=== PATIENT | female | born 1980 | race Caucasian/White ===

== ENCOUNTER 2018-10-17 23:30 | Outpatient (CLI) | payer MEDICAID, SELFPAY ==
--- NOTE | 2018-10-16 16:20 | DI.MAMMO_ITS ---
SYMPTOMS/DIAGNOSIS: SCREENING, Z12.31, PREVENTATIVE CARE, Z00.00 MAMMOGRAM: Mammograms were interpreted according to the usual protocol including computer analysis with CAD system, tomosynthesis and C view imaging. This is a baseline examination. Breast density B. No suspicious masses or microcalcifications are seen. The skin and axilla are unremarkable. There is asymmetric breast tissue in the upper right breast seen on the mediolateral oblique view. This may represent overlying fibroglandular tissue. Spot compression views requested for further evaluation. Ultrasound may be indicated at that time. IMPRESSION: Additional views of the right breast as described above. Category 0. MQSA ASSESSMENT OF FINDINGS: Incomplete: Needs additional imaging evaluation. Category 0. Patient will receive a letter notifying them of these results. BI-RADS category B. There are scattered areas of fibroglandular density.
== END 2018-10-17 23:50 ==
PROVIDERS: PCP Family Medicine; Visit Provider Family Medicine
DX: Z12.31 Encounter for screening mammogram for malignant neoplasm of breast (principal); R92.8 Other abnormal and inconclusive findings on diagnostic imaging of breast
CPT/HCPCS: 77063; 77067

== ENCOUNTER 2018-10-24 00:48 | Outpatient (CLI) | payer MEDICAID, SELFPAY ==
--- NOTE | 2018-10-24 09:30 | DI.COMBO_ITS ---
SYMPTOM/DIAGNOSIS: F/U MAMMO SHOWING ASYMMETRIC BREAST TISSUE, UPPER RT BREAST RIGHT BREAST ADDITIONAL VIEWS AND RIGHT BREAST ULTRASOUND: Additional images are interpreted according to the usual protocol including tomosynthesis and 2D imaging. An asymmetric density noted on the patient's previous examination was further investigated with a mediolateral compression spot film and ultrasound. There are nonspecific fibroglandular densities and an area which probably represents scarring. In addition, there is a well circumscribed, ovoid density which does not contain calcification. Further evaluation with ultrasound was carried out and there is a well circumscribed area of nodularity adjacent to echodense breast tissue which measures 5 by 6 by 11 mm. and is avascular. This nodule is approximately 5 cm. from the nipple and likely represents a fibroadenoma. The possibility of a malignancy could not be entirely excluded in this patient and follow up evaluation with repeat mammograms and ultrasound in 6 months is recommended. IMPRESSION: Category 3. Breast density, Category B. MQSA ASSESSMENT OF FINDINGS: Probably benign. Six month follow-up recommended. Category 3. Patient will receive a letter notifying them of these results. BI-RADS category B. There are scattered areas of fibroglandular density.
== END 2018-10-24 01:08 ==
PROVIDERS: PCP Family Medicine; Visit Provider Family Medicine
DX: Z12.31 Encounter for screening mammogram for malignant neoplasm of breast (principal); R92.8 Other abnormal and inconclusive findings on diagnostic imaging of breast; N63.10 Unspecified lump in the right breast, unspecified quadrant; D24.1 Benign neoplasm of right breast
CPT/HCPCS: 76642; 77063; 77067

== ENCOUNTER 2018-10-26 16:49 | Outpatient (REF) | payer MEDICAID, SELFPAY ==
[2018-10-30 14:52] LABS: Chlamydia Result Negative; GC Result Negative; Specimen Description CERVIX
== END 2018-10-26 17:09 ==
LOC: LBN 16:49
PROVIDERS: PCP Family Medicine; Visit Provider Nurse Practitioner Women's Health
DX: Z11.3 Encounter for screening for infections with a predominantly sexual mode of transmission (principal)
CPT/HCPCS: 87491; 87591

== ENCOUNTER 2018-12-13 15:30 | Outpatient (REF) | payer MEDICAID, SELFPAY ==
--- NOTE | 2018-12-13 14:20 | PAPFT_PTH ---
PATIENT: Esterlla Babb LOC: [facility] U#:[id number] AGE/SX: 38/F ROOM: RE12/13/[address]: Tabatha Ashby NP : 1980 BED: DIS: 12/13/2018 SPEC #: [id number] RECD: 12/13/18 17:31 STATUS: KURT RESteve #: [id number] DARLYN: 12/13/18 14:[address]: Tabatha Ashby NP DEPT: [facility] Cytology RECD BY: Cha Dodd ENTERED: 12/13/18 17:31 SP TYPE: PAPFT OTHR DR: Audra Stafford V Tissues: 1 - CX/ENDOCX FOR PAP SMEARS Procedures: PAP THIN PREP/UVM Screening HPV DNA PROBE Comments: [id number]
== END 2018-12-13 15:50 ==
LOC: LBN 15:30
PROVIDERS: PCP Family Medicine; Visit Provider Nurse Practitioner Women's Health
DX: Z12.4 Encounter for screening for malignant neoplasm of cervix (principal); Z11.51 Encounter for screening for human papillomavirus (HPV)
CPT/HCPCS: 88142; 87624

== ENCOUNTER 2019-09-12 00:04 | Emergency (ER) | payer MEDICAID, SELFPAY ==
[2019-09-12 00:09] VITALS: BP 126/87; PULSE 80; RESP 16; TEMP 36.4; O2SAT 98
--- NOTE | 2019-09-12 00:19 | ED.GENADUL_ITS ---
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 Return to emergency department for fainting, chest pain, shortness of breath, persistent pelvic pain, fever. Referrals: [facility] [Provider Group] Medical Decision Making Patient with history of dysfunctional uterine bleeding/heavy bleeding in the past. Had been regulated okay with a medicated IUD except for the last couple of weeks recurrent heavy bleeding. No chest pain, shortness of breath, syncope. Did speak to OB and was told to make an appointment but has not done so. She is not orthostatic. test is negative. In review of records this spring after IUD placed she was tried on Aygestin. She reports that she cannot remember whether this really helped or not. I can start her on Provera 5 mg nightly for the next 5 days to see if we can get control of her bleeding but she will need to follow-up with OB as they requested. Return to ED for syncope, chest pain, shortness of breath, severe persistent pelvic pain. HPI General Mode of arrival: ambulatory . Date/Time Provider Initiated Documentation: 09/12/19 00:18 . Limitations to Documentation: no limitations . Information obtained by: patient and RN notes reviewed . HPI Narrative: Patient presents to ED with complaint of heavy vaginal bleeding. Patient has history of dysfunctional uterine bleeding and has so for years. She has medicated IUD in place to try to help control her bleeding. When it was initially placed she had heavy bleeding for couple of months. She then became a little bit better regulated with less heavy bleeding but continued to have her periods. For the last 1 to 2 weeks she has had recurrent heavy bleeding with clots. She has menstrual cramping but no persistent pelvic pain. She has no fever, syncope, chest pain, shortness of breath. She has been in contact with her OB provider and was told she needed to make an appointment but has not done so because she does not feel she can take time off from work. She felt her bleeding was pretty heavy tonight with clots and decided to come here. 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 Const: no fever, chills, weakness Resp: no cough, SOB, pleuritic pain CV: no CP, diaphoresis, edema, syncope GI: no abdominal pain, nausea, vomiting, diarrhea Neuro: no headache, numbness, focal weakness, confusion [facility] Medical History (Updated 09/12/19 @ 01:25 by Leonard Goodrich MD) Anemia (Chronic) Dysfunctional uterine bleeding (Chronic 11/02/17) Surgical History (Updated 09/12/19 @ 00:28 by Leonard Goodrich MD) S/P appendectomy (Acute) S/P tubal ligation (Acute) Social History Smoking/Tobacco Use Status: Never Drug use: Never Do you feel safe at home: Yes Do you feel safe in your relationship?: Yes Female Reproductive History Menstrual control method: progestin IUCD (Mirena IUD inserted by Alexy Ashby NP IKI=[id number] EXP=01/2021) and permanent sterilization History History 8 Para 5 Hx # Term Pregnancies Multiple births Hx # Pregnancies Ectopic pregnancies AB induced Hx Number of Living Children AB spontaneous Exam Narrative Exam Narrative: Vitals: Afebrile. Normal vital signs with normal room air pulse oximetry. Not orthostatic. Const: WDWN female in NAD. HEENT: NC/AT. Normal facial exam. Eyes: Normal conjunctiva and sclera. Neck: Supple. Trachea midline. Lungs: Normal respiratory effort. Lungs are clear. Cor: RRR without murmur/gallop. GI: Soft. NT/ND. No guarding or rebound. Pelvic: deferred. Neuro: A+O x 3. Normal speech, mentation, gait. Cranial nerves II - XII grossly intact. No gross motor or sensory deficit. Ext: No C/C/E. Skin: Warm and dry without rash. Course Vital Signs Vital signs: Vital Signs Temperature 97.5 F L 09/12/19 00:09 Pulse 80 09/12/19 00:09 Respiratory Rate 16 09/12/19 00:09 Blood Pressure 126/87 09/12/19 00:09 Pulse Oximetry 98 09/12/19 00:09 Temperature 97.5 F L 09/12/19 00:09 Pulse 80 09/12/19 00:09 Respiratory Rate 16 09/12/19 00:09 Respiratory Effort Non-Labored 09/12/19 00:13 Blood Pressure 126/87 09/12/19 00:09 Blood Pressure Position Sitting 09/12/19 00:09 Pulse Oximetry 98 09/12/19 00:09 Oxygen Delivery Method Room Air 09/12/19 00:09 Oxygen Flow Rate 0 09/12/19 00:09 Pain Level 6 09/12/19 00:09
[2019-09-12 00:23] VITALS: BP 118/80; BP 121/84; BP 126/80; PULSE 84; PULSE 85; PULSE 99
[2019-09-12] MEDS: medroxyPROGESTERone 5 MG TAB PO (01:11)
[2019-09-12 01:37] VITALS: BP 126/87; PULSE 80; RESP 16; TEMP 36.4; O2SAT 98
== END 2019-09-12 01:40 | disposition home or self-care (01) ==
PROVIDERS: Emergency Provider Emergency Medicine; PCP Family Medicine
DX: N93.8 Other specified abnormal uterine and vaginal bleeding
CPT/HCPCS: 81025; 99284

== ENCOUNTER 2019-09-12 14:13 | Outpatient (REF) | payer MEDICAID, SELFPAY ==
--- NOTE | 2019-09-12 13:20 | ENDOMET_PTH ---
PATIENT: Estrella Babb LOC: [facility] U#:[id number] AGE/SX: 39/F ROOM: RE09/12/[address]: Tabatha Ashby NP : 1980 BED: DIS: 09/12/2019 SPEC #: [id number] RECD: 09/12/19 17:17 STATUS: KURT RESteve #: [id number] DARLYN: 09/12/19 13:[address]: Tabatha Ashby NP DEPT: Surgical Specimen RECD BY: Cha Dodd ENTERED: 09/12/19 17:17 SP TYPE: Endomet OTHR DR: Audra Stafford V Tissues: 1 - ENDOMETRIUM BX/JOHNNYETTE Procedures: GROSS AND MICRO LEVEL 4 Comments: [id number]
== END 2019-09-12 14:33 ==
LOC: LBN 14:13
PROVIDERS: PCP Family Medicine; Visit Provider Nurse Practitioner Women's Health
DX: N85.01 Benign endometrial hyperplasia (principal); N83.8 Other noninflammatory disorders of ovary, fallopian tube and broad ligament; N93.9 Abnormal uterine and vaginal bleeding, unspecified
CPT/HCPCS: 88305

== ENCOUNTER 2019-09-13 01:42 | Outpatient (CLI) | payer MEDICAID, SELFPAY ==
--- NOTE | 2019-09-13 09:50 | DI.US_ITS ---
EXAM: US PELVIS TRANSVAGINAL CLINICAL HISTORY: Abnormal uterine bleeding, IUD in place, N93.8, Z30.431 TECHNIQUE: Ultrasound performed using standard protocol. COMPARISON: US breast RT limited from 10/24/2018 FINDINGS: Pelvic ultrasounds performed transabdominally transvaginally. Please see the accompanying data sheet for measurements of the pelvic structures. The patient reportedly had recent endometrial biopsy. T here is a vascular mass measuring up to 7 cm in the fundal endometrium. No IUD identified on this sc an. The ovaries are normal in appearance. No free fluid identified in the cul-de-sac. Limited scan francisco of the kidneys is unremarkable. IMPRESSION: IUD not visualized in the uterus. There is an apparent endometrial mass, reportedly recently biopsied. No gross fluid collection ident ified to suggest acute hematoma.
== END 2019-09-13 02:02 ==
PROVIDERS: PCP Family Medicine; Visit Provider Nurse Practitioner Women's Health
DX: N93.8 Other specified abnormal uterine and vaginal bleeding (principal); Z30.431 Encounter for routine checking of intrauterine contraceptive device; N85.8 Other specified noninflammatory disorders of uterus
CPT/HCPCS: 76830; 76856

== ENCOUNTER 2019-09-18 11:36 | Outpatient (CLI) | payer MEDICAID, SELFPAY | END 2019-09-18 11:56 | LOC: PRC 11:36 → DSU 11:39 | PROVIDERS: PCP Family Medicine; Visit Provider Obstetrics & Gynecology | DX: D25.9 Leiomyoma of uterus, unspecified (principal); Z01.818 Encounter for other preprocedural examination; Z01.812 Encounter for preprocedural laboratory examination | CPT/HCPCS: 36415; 85027; 86850; 86900; 86901; 86920 ==

== ENCOUNTER 2019-09-18 11:38 | Outpatient (CLI) | payer MEDICAID, SELFPAY ==
--- NOTE | 2019-09-18 12:45 | DI.RAD_ITS ---
EXAM: XR ABDOMEN FLAT PLATE INDICATION: IUD lost strings. Not in uterus. T83.32XA. COMPARISON: No exams were available for comparison TECHNIQUE: 2D digital imaging was performed. FINDINGS: No IUD is visible. The bowel gas pattern is unremarkable. No urinary tract calculi or organomegaly is seen. The bones are unremarkable. IMPRESSION: The IUD is not visualized.
== END 2019-09-18 11:58 ==
PROVIDERS: PCP Family Medicine; Visit Provider Obstetrics & Gynecology
DX: T83.32XA Displacement of intrauterine contraceptive device, initial encounter (principal); D25.9 Leiomyoma of uterus, unspecified; Z01.818 Encounter for other preprocedural examination; Z01.812 Encounter for preprocedural laboratory examination
CPT/HCPCS: 74018

== ENCOUNTER 2019-09-19 11:13 | Observation (INO) | payer MEDICAID, SELFPAY ==
[2019-09-18 11:51] VITALS: BP 102/70; PULSE 76
[2019-09-18 13:15] LABS: HCT 27.2 % (36.0-46.0); HGB 8.2 g/dL (12.0-15.5); Mean Corp. HGB Concentration 30.1 g/dL (32.0-36.0); Mean Corpuscular Hemoglobin 21.8 pg (27.0-33.0); Mean Corpuscular Volume 72.3 fL (80-95); Mean Platelet Volume 10.9 fL (8.0-11.0); RBC 3.76 m/cumm (4.00-5.20); RBC Distribution Width 17.8 % (11.7-14.6); White Blood Cell Count 6.95 k/cumm (4.4-10.8)
[2019-09-19] VITALS (17 sets, daily range): BP systolic 81–114; BP diastolic 44–77; PULSE 7–88; RESP 13–24; TEMP 36.3–36.8; O2SAT 98–100
[2019-09-19 06:35] LABS: Abs Immature Grans 0.02 k/cumm (0.0-0.09); Absolute Basophil Count 0.03 k/cumm (0.0-0.2); Absolute Eosinophil Count 0.11 k/cumm (0.0-0.7); Absolute Lymphocyte Count 1.74 k/cumm (1.2-3.4); Absolute Monocyte Count 0.41 k/cumm (0.11-0.7); Absolute Neutrophil Count 5.11 k/cumm (1.2-6.7); Basophils % 0.4; Eosinophils % 1.5; HCT 27.1 % (36.0-46.0); HGB 8.2 g/dL (12.0-15.5); Immature Grans % 0.3 %; Lymphocytes % 23.5; Mean Corp. HGB Concentration 30.3 g/dL (32.0-36.0); Mean Corpuscular Hemoglobin 21.8 pg (27.0-33.0); Mean Corpuscular Volume 71.9 fL (80-95); Monocytes % 5.5; Neutrophils % 68.8; RBC 3.77 m/cumm (4.00-5.20); RBC Distribution Width 17.8 % (11.7-14.6); White Blood Cell Count 7.42 k/cumm (4.4-10.8)
[2019-09-19 06:47] LABS: Mean Platelet Volume 9.3 fL (8.0-11.0)
[2019-09-19 06:49] LABS: Platelet Count 303 x1000/uL (130-400)
[2019-09-19] MEDS: Lactated Ringers 1,000 ML 125 ML IV ×3 (07:00→14:24)
[2019-09-19] MEDS: ceFAZolin 2 GM/50 ML BAG IVPB (07:45)
[2019-09-19] MEDS: Bupivacaine 0.25% Pres-Free 30 ML VIAL (08:10)
--- NOTE | 2019-09-19 09:47 | UTER_PTH ---
PATIENT: Estrella Babb LOC: [facility] U#:[id number] AGE/SX: 39/F ROOM: OBS.305 RE09/19/[address]: Marcio Melara MD : 1980 BED: A DIS: 09/20/2019 SPEC #: [id number] RECD: 09/19/19 12:46 STATUS: KURT REQ #: [id number] DARLYN: 09/19/19 09:[address]: Marcio Melara DEPT: Surgical Specimen RECD BY: Cha Dodd ENTERED: 09/19/19 12:46 SP TYPE: UTER OTHR DR: Audra Stafford V Tissues: 1 - UTERUS W OR W/O OVARIES(NOT TUMOR/PROLAPSE) Procedures: IMMUNOPEROXIDASE STAIN GROSS AND MICRO LEVEL 5 Comments: [id number]
[2019-09-19] MEDS: Vasopressin 20 UNITS/ML VIAL (09:57)
[2019-09-19] MEDS: Normal Saline 20 ML VIAL (09:57)
[2019-09-19] MEDS: Normal Saline Flush 10 ML SYR IV (13:06)
[2019-09-19] MEDS: Ketorolac 30 MG/ML VIAL IVP ×2 (16:06→21:32)
--- NOTE | 2019-09-19 21:28 | W.PM.PROGNOT ---
Date of Service Date of service: 09/19/19 Time of Service: 21:28 Assessment and Plan Assessment and plan (1) S/P laparoscopic assisted vaginal hysterectomy (LAVH): Status: Acute Assessment and plan: Patient vital signs and urinary output currently stable. No evidence of volume depletion. The plan is to repeat her hemoglobin in the morning, remove Santamaria catheter and assist with ambulating with the plan for possible discharge. (2) Anemia: Status: Chronic Assessment and plan: Recheck CBC in the morning. Qualifiers: Iron deficiency anemia type: chronic blood loss Anemia type: iron deficiency Qualified Code(s): D50.0 - Iron deficiency anemia secondary to blood loss (chronic) Subjective Subjective Patient reports: pain is less, tolerating liquids well and nausea Interval history since last seen: Patient is a 39-year-old G8, P5 female who underwent laparoscopic assisted vaginal hysterectomy and bladder cystoscopy earlier today. Postop course has been uncomplicated she has been out of bed to the chair. Her pain is been well controlled and aside from nausea she reports feeling okay. Patient has a history of anemia and her blood pressure in the recovery area was low with normal pulse and excellent urinary output via Santamaria catheter to gravity drainage. Exam Const General: no acute distress Resp Effort & Inspection: normal respiratory effort Other: Clear mark urine in the Santamaria catheter bag Skin General skin exam: no rashes or lesions noted Extrem General: normal to inspection (SCDs in place) Psych Appearance: grossly normal Mental Status: mental status grossly normal Objective Objective Clinical Data: Abnormal lab results 09/19/19 Range/Units 06:26 RBC 3.77 L (4.00-5.20) m/cumm Hgb 8.2 L (12.0-15.5) g/dL Hct 27.1 L (36.0-46.0) % MCV 71.9 L (80-95) fL MCH 21.8 L (27.0-33.0) pg MCHC 30.3 L (32.0-36.0) g/dL RDW 17.8 H (11.7-14.6) % Vital Signs Temperature 98.2 F 09/19/19 20:42 Temperature Source Tympanic 09/19/19 20:42 Pulse 68 09/19/19 20:42 Pulse Rhythm Regular 09/19/19 20:42 Respiratory Rate 18 09/19/19 20:42 Respiratory Effort 09/19/19 20:42 Respiratory Depth Normal 09/19/19 20:42 Respiratory Pattern Normal 09/19/19 20:42 Blood Pressure 102/56 L 09/19/19 20:42 Pulse Oximetry 98 09/19/19 17:30 Respiratory End-tidal CO2 30 09/19/19 12:15 Oxygen Delivery Method Room Air 09/19/19 20:42 Oxygen Flow Rate 0 09/19/19 20:42 Pain Level 0 09/19/19 16:06 Intake & Output 09/18/19 09/19/19 09/19/19 23:59 11:59 23:59 Intake Total 1150 / 1585.417 435.417 / 1585.417 Output Total 750 / 1350 600 / 1350 Balance 400 / 235.417 -164.583 / 235.417 Weight 182 lb 5.156 oz Intake: IV 1150 / 1585.417 435.417 / 1585.417 Output: Urine 750 / 1350 600 / 1350 Other: Urine Color Indigo Pale Green Urine Appearance Clear Clear Comment Indigo carmine used during surgery. Pacu. Emesis Description None None Laboratory Results WBC 7.42 k/cumm (4.4-10.8) 09/19/19 06:26 RBC 3.77 m/cumm (4.00-5.20) L 09/19/19 06:26 Hgb 8.2 g/dL (12.0-15.5) L 09/19/19 06:26 Hct 27.1 % (36.0-46.0) L 09/19/19 06:26 MCV 71.9 fL (80-95) L 09/19/19 06:26 MCH 21.8 pg (27.0-33.0) L 09/19/19 06:26 MCHC 30.3 g/dL (32.0-36.0) L 09/19/19 06:26 RDW 17.8 % (11.7-14.6) H 09/19/19 06:26 Plt Count 303 x1000/uL (130-400) 09/19/19 06:26 MPV 9.3 fL (8.0-11.0) 09/19/19 06:26 Immature Gran % 0.3 % 09/19/19 06:26 Neutrophils % 68.8 09/19/19 06:26 Lymphocytes % 23.5 09/19/19 06:26 Monocytes % 5.5 09/19/19 06:26 Eosinophils % 1.5 09/19/19 06:26 Basophils % 0.4 09/19/19 06:26 Absolute Neutrophils 5.11 k/cumm (1.2-6.7) 09/19/19 06:26 Absolute Lymphocytes 1.74 k/cumm (1.2-3.4) 09/19/19 06:26 Absolute Monocytes 0.41 k/cumm (0.11-0.7) 09/19/19 06:26 Absolute Eosinophils 0.11 k/cumm (0.0-0.7) 09/19/19 06:26 Absolute Basophils 0.03 k/cumm (0.0-0.2) 09/19/19 06:26 Urine HCG, Qual Cancelled 09/19/19 06:00
[2019-09-19] MEDS: Ondansetron 4 MG/2 ML VIAL IVP (21:32)
[2019-09-19] MEDS: Docusate Sodium 100 MG CAP PO (21:32)
[2019-09-19] MEDS: Normal Saline 10 ML VIAL IJ (21:33)
[2019-09-20] VITALS (8 sets, daily range): BP systolic 90–119; BP diastolic 54–67; PULSE 57–75; RESP 16–20; TEMP 36.4–36.9; O2SAT 99–100
[2019-09-20] MEDS: Ketorolac 30 MG/ML VIAL IVP ×2 (04:01→10:12)
[2019-09-20] MEDS: Normal Saline Flush 10 ML SYR IV ×4 (04:02→11:28)
[2019-09-20 06:40] LABS: HCT 22.9 % (36.0-46.0); Mean Corp. HGB Concentration 29.7 g/dL (32.0-36.0); Mean Corpuscular Hemoglobin 21.7 pg (27.0-33.0); Mean Corpuscular Volume 72.9 fL (80-95); Mean Platelet Volume 11.9 fL (8.0-11.0); RBC 3.14 m/cumm (4.00-5.20); RBC Distribution Width 17.8 % (11.7-14.6); White Blood Cell Count 11.98 k/cumm (4.4-10.8)
[2019-09-20 07:32] LABS: HGB 6.8 g/dL (12.0-15.5)
[2019-09-20 07:37] LABS: Platelet Count 250 x1000/uL (130-400)
[2019-09-20] MEDS: Docusate Sodium 100 MG CAP PO (08:44)
--- NOTE | 2019-09-20 09:40 | W.PM.PROGNOT ---
Date of Service Date of service: 09/20/19 Time of Service: 09:40 Assessment and Plan Assessment and plan (1) S/P laparoscopic assisted vaginal hysterectomy (LAVH): Status: Acute Assessment and plan: Pain is well controlled. Has required no pain management beyond toradol overnight. (2) Abnormal uterine bleeding: Status: Acute (3) Chronic blood loss anemia: Status: Acute Assessment and plan: Will transfuse 1 unit of PRBCs due to anemia. If doing well this afternoon will plan for discharge home. Subjective Subjective Interval history since last seen: Doing well. Pain rated 2/10 on painscale Ambulatory Tolerating regular diet. No dizziness or lightheadedness on ambulation Hgb returned 6.8 this morning. Objective Objective Clinical Data: Abnormal lab results 09/20/19 09/20/19 Range/Units 06:22 09:35 WBC 11.98 H D (4.4-10.8) k/cumm RBC 3.14 L (4.00-5.20) m/cumm Hgb 6.8 L* (12.0-15.5) g/dL Hct 22.9 L (36.0-46.0) % MCV 72.9 L (80-95) fL MCH 21.7 L (27.0-33.0) pg MCHC 29.7 L (32.0-36.0) g/dL RDW 17.8 H (11.7-14.6) % MPV 11.9 H (8.0-11.0) fL Crossmatch See Detail Vital Signs Temperature 98.4 F 09/20/19 07:50 Temperature Source Oral 09/20/19 07:50 Pulse 69 09/20/19 07:50 Pulse Rhythm Regular 09/20/19 07:50 Respiratory Rate 16 09/20/19 07:50 Respiratory Effort Non-Labored 09/20/19 07:50 Respiratory Depth Normal 09/20/19 07:50 Respiratory Pattern Normal 09/20/19 07:50 Blood Pressure 94/62 L 09/20/19 07:50 Pulse Oximetry 100 09/20/19 07:50 Respiratory End-tidal CO2 30 09/19/19 12:15 Oxygen Delivery Method Room Air 09/20/19 07:50 Oxygen Flow Rate 0 09/20/19 07:50 Pain Level 2 02/13/20 08:58 Comment 09/20/19 07:50 Intake & Output 09/19/19 09/19/19 09/20/19 11:59 23:59 11:59 Intake Total 1150 / 2535.417 1385.417 / 2535.417 1150 / 1150 Output Total 750 / 1750 1000 / 1750 600 / 600 Balance 400 / 785.417 385.417 / 785.417 550 / 550 Weight 182 lb 5.156 oz Intake: IV 1150 / 2535.417 1385.417 / 2535.417 910 / 910 Oral 240 / 240 Output: Urine 750 / 1750 1000 / 1750 600 / 600 Other: Urine Color Indigo Pale Pale Green Yellow Urine Appearance Clear Clear Comment Indigo carmine used during surgery. Pacu. Emesis Description None None Laboratory Results WBC 11.98 k/cumm (4.4-10.8) H D 09/20/19 06:22 RBC 3.14 m/cumm (4.00-5.20) L 09/20/19 06:22 Hgb 6.8 g/dL (12.0-15.5) L* 09/20/19 06:22 Hct 22.9 % (36.0-46.0) L 09/20/19 06:22 MCV 72.9 fL (80-95) L 09/20/19 06:22 MCH 21.7 pg (27.0-33.0) L 09/20/19 06:22 MCHC 29.7 g/dL (32.0-36.0) L 09/20/19 06:22 RDW 17.8 % (11.7-14.6) H 09/20/19 06:22 Plt Count 250 x1000/uL (130-400) 09/20/19 06:22 MPV 11.9 fL (8.0-11.0) H 09/20/19 06:22 Immature Gran % 0.3 % 09/19/19 06:26 Neutrophils % 68.8 09/19/19 06:26 Lymphocytes % 23.5 09/19/19 06:26 Monocytes % 5.5 09/19/19 06:26 Eosinophils % 1.5 09/19/19 06:26 Basophils % 0.4 09/19/19 06:26 Absolute Neutrophils 5.11 k/cumm (1.2-6.7) 09/19/19 06:26 Absolute Lymphocytes 1.74 k/cumm (1.2-3.4) 09/19/19 06:26 Absolute Monocytes 0.41 k/cumm (0.11-0.7) 09/19/19 06:26 Absolute Eosinophils 0.11 k/cumm (0.0-0.7) 09/19/19 06:26 Absolute Basophils 0.03 k/cumm (0.0-0.2) 09/19/19 06:26 Urine HCG, Qual Cancelled 09/19/19 06:00 Crossmatch See Detail 09/20/19 09:35
[2019-09-20] MEDS: diphenhydrAMINE 25 MG CAP PO (10:38)
[2019-09-20] MEDS: Acetaminophen 500 MG TAB 1000 MG PO (10:39)
[2019-09-20] MEDS: Normal Saline 1,000 ML 125 ML IV (11:28)
--- NOTE | 2019-09-20 14:03 | ROE_ITS ---
Date of service: 09/19/19 Time of Service: 12:00 Operative Note Operative Note DATE OF PROCEDURE: 09/19/19 PRE-OP DIAGNOSIS: 1. Fibroid uterus 2. Blood loss anemia POST-OP DIAGNOSIS: same PROCEDURE: 1. Laparoscopic-assisted vaginal hysterectomy 2. Cystoscopy SURGEON: Marcio Melara ASSISTING SURGEON: Lesley Trevino ANESTHESIA: GETA and spinal ESTIMATED BLOOD LOSS: 100 PATHOLOGY: other (Uterus) COMPLICATIONS: None Patient was transported to: PACU Patient's condition: stable Findings: 1. 16-week size uterus with large posterior fibroid 2. Normal tubes and ovaries 3. Normal postoperative cystoscopy Procedure Description: The patient received intrathecal anesthesia prior to the onset of the procedure. After adequate general anesthesia was achieved the patient was placed in lithotomy position. The patient was prepped and draped in usual sterile manner. A Fraser catheter was placed in the bladder draining clear urine. A Brightkite uterine manipulator was placed to the cervix. The patient was repositioned. The surgeon was regloved. Attention was then turned to the patient's abdomen. The skin and subcutaneous tissues at the umbilicus were infiltrated with 0.25% Marcaine solution. A small infraumbilical skin incision was then made with a #15 scalpel. Sharp dissection was carried down to the underlying layer of fascia. The fascia was grasped and elevated with 2 Tyrel clamps and incised sharply with the scalpel. The peritoneum was entered with a hemostat. Two S retractors were placed through the incision and the fascia was tagged superiorly and inferiorly with 2 sutures of 0 Vicryl. The 10 mm balloon trocar was advanced through the incision and secured in place. A pneumoperitoneum to approximately 15 mmHg was established with carbon dioxide. 2 5 mm ports were placed under direct visualization in the right lower and left lower quadrants. The uterus was markedly enlarged with a 5 to 6 cm posterior fibroid. The fallopian tubes and ovaries were grossly normal and she was status post tubal ligation. Dissection was carried across the proximal tube and suspensory lig ament with the LigaSure device. Dissection was then carried across the round ligament also with the LigaSure device down to the level of the vesicouterine flap. The anterior leaf was opened and dissection of the vesicouterine flap was carried to the midline with the LigaSure device. Dissection down the broad ligament was taken to the level of the uterine vessels of which the upper branches were coagulated and transected with the LigaSure. A similar dissection was carried out on the opposite side. The bladder flap was then developed caudally. Attention was then turned to the vaginal portion of this procedure. The patient was repositioned. A weighted speculum was placed in the vagina with good visualization of the cervix. The cervix was grasped with a single-tooth tenaculum. The paracervical tissues were infiltrated with vasopressin solution. A circumferential incision was made at the cervicovaginal junction with a #10 scalpel. The anterior and posterior planes were developed with blunt and sharp dissection. The cul-de-sac was entered sharply with Hawkins scissors. A longbilled weighted speculum was inserted reflecting the rectum posteriorly. The vesicocervical space was dissected with blunt and sharp dissection and the anterior cul-de-sac was also entered. The bladder was reflected anteriorly with a right angle retractor. The uterosacral ligaments were crossclamped b ilaterally with Zeppelin clamps, transected with Hawkins scissors and suture ligated with 0 Vicryl in a Viridiana stitch. Suture tags were held. The LigaSure was used to coagulate and transect the inferior branches of the uterine vessels. Dissection on either side was completed with the LigaSure device thereby freeing the uterus. Because of the large bulk of the uterus it was morcellated vaginally with use of a #10 scalpel. The specimen was submitted off the field to pathology. The uterosacral ligaments were incorporated into the vaginal angles with use of the previously placed sutures of 0 Vicryl and with the use of a free needle. The peritoneum was closed with a pursestring suture of 0 Vicryl. The median defect in the vaginal cuff was closed with interrupted vertical mattress sutures of 0 Vicryl. Again excellent hemostasis was noted. The fraser catheter was removed and 5 mL's of indigocarmine had been administered intravenously. A 5 mm 30 degree cystoscope with normal saline distention media was advanced into the bladder. The bladder wall was noted to be free of trauma. There was strong efflux of indigocarmine from both UOs. This was a normal postoperative cystoscopy. The surgeons were regowned and gloved and attention was turned to the patient's abdomen. The pneumoperitoneum was reestablished and laparoscope reinserted. A thorough irrigation was performed. There was a small area of bleeding noted on the left-hand side near the vaginal cuff. This was coagulated with the LigaSure device and excellent hemostasis was noted. The 5 mm trochars were removed under direct visualization. The abdomen was desufflated and the 10 mm umbilical port was removed. The fascia at the umbilicus was closed with 2 previously placed sutures of 0 Vicryl. Skin incisions were closed with 4 Monocryl and Dermabond was applied. The procedure was concluded at this point. Sponge, lap and needle counts were correct at the conclusion of the procedure. The patient tolerated the procedure well and was transferred to PACU stable condition.
== END 2019-09-20 14:25 | disposition home or self-care (01) ==
LOC: OBS 12:49
PROVIDERS: Admitting Provider Obstetrics & Gynecology; PCP Family Medicine; Visit Provider Obstetrics & Gynecology
PROC: 0UT9FZZ Resection of Uterus, Via Natural or Artificial Opening With Percutaneous Endoscopic Assistance (ICD-10-PCS; CPT 58554; principal; 2019-09-19 07:30)
DX: D39.0 Neoplasm of uncertain behavior of uterus (principal); D25.9 Leiomyoma of uterus, unspecified; D50.0 Iron deficiency anemia secondary to blood loss (chronic); N93.8 Other specified abnormal uterine and vaginal bleeding
CPT/HCPCS: 58554; 36415; 81025; 85027; 86850; 86900; 86901; 86920; 99233; NC; 85025; 88307; 88361; J0690; J1100; J1885; J2001; J2250; J2310; J2405; J2704; J3010; P9016

== ENCOUNTER 2019-10-30 01:57 | Outpatient (CLI) | payer MEDICAID, SELFPAY ==
--- NOTE | 2019-10-30 13:08 | DI.MAMMO_ITS ---
EXAM: MG MAMMO SCREENING CLINICAL HISTORY: SCREENING, Z12.39 TECHNIQUE: Mammograms were interpreted according to the usual protocol including computer analysis w [employer] CAD system, tomosynthesis and C-view imaging. COMPARISON: October 2018 FINDINGS: Breasts are of moderate density. There is somewhat asymmetrical distribution of fibroglandular tissu e in the breasts, unchanged from prior study of October 2018. No new mass or clumped microcalcificatio n identified. IMPRESSION: No specific evidence of malignancy at this time. Routine screening examinations are suggested at yea rly intervals according to the ACR guidelines. BI-RADS Cat 1 - Negative Breast Density - Category B - Scattered areas of fibroglandular density
== END 2019-10-30 02:17 ==
PROVIDERS: PCP Family Medicine; Visit Provider Family Medicine
DX: Z12.31 Encounter for screening mammogram for malignant neoplasm of breast (principal)
CPT/HCPCS: 77063; 77067

== ENCOUNTER 2021-08-12 20:42 | Outpatient (REF) | payer MEDICAID, SELFPAY ==
[2021-08-14 16:28] LABS: COVID-19 RT-PCR UVMMC Result Negative (Negative)
== END 2021-08-12 20:43 | disposition home or self-care (01) ==
LOC: LBN 20:42
PROVIDERS: PCP Family Medicine; Visit Provider Physician Assistant Medical
DX: Z20.822 Contact with and (suspected) exposure to COVID-19 (principal); J02.9 Acute pharyngitis, unspecified
CPT/HCPCS: U0003

== ENCOUNTER 2021-08-22 12:52 | Outpatient (REF) | payer MEDICAID, SELFPAY ==
[2021-08-24 10:10] LABS: COVID-19 RT-PCR UVMMC Result Negative (Negative)
== END 2021-08-22 12:53 | disposition home or self-care (01) ==
LOC: NCHCN 12:52
PROVIDERS: PCP Family Medicine; Visit Provider Physician Assistant Medical
DX: Z20.822 Contact with and (suspected) exposure to COVID-19 (principal); J06.9 Acute upper respiratory infection, unspecified
CPT/HCPCS: U0003

== ENCOUNTER 2021-11-05 17:55 | Outpatient (REF) | payer MEDICAID, SELFPAY ==
[2021-11-06 15:44] LABS: COVID-19 RT-PCR UVMMC Result Negative (Negative)
== END 2021-11-05 17:56 | disposition home or self-care (01) ==
LOC: LBN 17:55
PROVIDERS: PCP Family Medicine; Visit Provider Physician Assistant Medical
DX: Z20.822 Contact with and (suspected) exposure to COVID-19 (principal); J06.9 Acute upper respiratory infection, unspecified
CPT/HCPCS: U0003

== ENCOUNTER 2021-11-06 16:57 | Emergency (ER) | payer MEDICAID, SELFPAY ==
[2021-11-06 17:06] VITALS: BP 124/82; PULSE 96; RESP 16; TEMP 36.3; O2SAT 99
--- NOTE | 2021-11-06 17:29 | ED.GENADUL_ITS ---
Discharge Plan Discharge Details Chief Complaint: Urinary Primary Care Provider: Audra Stafford V ED Provider: Beni Gamez Home Meds and New Rx's Prescriptions: No Action acetaminophen [Tylenol Extra Strength] 500 mg tablet 1,000 mg PO Q6H PRN0RF albuterol sulfate 90 mcg/actuation HFA aerosol inhaler 2 puff INHALATION PRN PRN0RF Label Comments: USE 1 TO 2 PUFFS EVERY 4 -6 HOURS NEEDED FOR FOR SHORTNESS OF BREATH, WHEEZING AND COUGH Fish Oil Concentrate Capsule 1 cap PO DAILY 0RF HPI General Mode of arrival: ambulatory . Date/Time Provider Initiated Documentation: 11/06/21 16:59 . Limitations to Documentation: no limitations . Information obtained by: patient . Related Data Home Medications Medication Instructions Recorded Confirmed acetaminophen 500 mg tablet 1,000 mg PO Q6H PRN tab 09/13/19 11/06/21 (Tylenol Extra Strength) albuterol sulfate 90 mcg/actuation 2 puff INHALATION PRN PRN 11/06/21 11/06/21 aerosol inhaler omega-3 fatty acids 1 cap PO DAILY 11/06/21 11/06/21 Allergies Allergy/AdvReac Type Severity Reaction Status Date / Time No Known Allergies Allergy Verified 11/06/21 17:15 General Stated Complaint: Urinary MARIELY: 3 PFSH All Active Problems (Updated 11/01/19 @ 10:13 by Marcio Melara MD) 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 To treat abnormal uterine bleeding and associated anemia. Moderate dysplasia of cervix (ERIC II) (Acute 04/27/16) Low grade squamous intraepithelial lesion (LGSIL) on cervical Pap smear (Acute 04/08/16) Cervical high risk HPV (human papillomavirus) test positive (Acute 04/08/16) Abnormal uterine bleeding (Acute) Uterine fibroid complicating care, baby not yet delivered (Acute) IUD strings lost (Acute) Blood loss anemia (Acute) Fibroid, uterine (Acute) Anemia (Chronic) Dysfunctional uterine bleeding (Chronic 11/02/17) Medical History (Updated 11/01/19 @ 10:13 by Marcio Melara MD) Hx of gastroesophageal reflux (GERD) Per pt. Surgical History (Updated 09/19/19 @ 21:32 by Jessica Garcia MD) S/P appendectomy S/P tubal ligation Social History Smoking/Tobacco Use Status: Never Smoking risk assessment performed?: Yes Alcohol Intake: current Alcohol Intake frequency: holidays/special occasions only Drug use: Never Substance use type: does not use Do you feel safe at home: Yes Do you feel safe in your relationship?: Yes Female Reproductive History Menstrual control method: progestin IUCD and permanent sterilization History History 8 Para 5 Hx # Term Pregnancies Multiple births Hx # Pregnancies Ectopic pregnancies AB induced Hx Number of Living Children AB spontaneous Course Vital Signs Vital signs: Vital Signs Temperature 36.3 C L 11/06/21 17:06 Pulse 96 H 11/06/21 17:06 Respiratory Rate 16 11/06/21 17:06 Blood Pressure 124/82 11/06/21 17:06 Pulse Oximetry 99 11/06/21 17:06 Temperature 36.3 C L 11/06/21 17:06 Temperature Source Skin 11/06/21 17:06 Pulse 96 H 11/06/21 17:06 Respiratory Rate 16 11/06/21 17:06 Respiratory Effort 11/06/21 17:19 Blood Pressure 124/82 11/06/21 17:06 Blood Pressure Position Sitting 11/06/21 17:06 Pulse Oximetry 99 11/06/21 17:06 Oxygen Delivery Method Room Air 11/06/21 17:06 Oxygen Flow Rate 0 11/06/21 17:06 Pain Level 8 11/06/21 17:21 Comment 11/06/21 17:06
[2021-11-06 17:39] LABS: Bilirubin Negative (Negative); Blood Trace-intact (Negative); Clarity Cloudy (Clear); Glucose Negative (Negative); Ketones Negative (Negative); Leukocyte Esterase Trace (Negative); Nitrite Negative (Negative); Specific Gravity >= 1.030 (1.005-1.025); Urobilinogen 0.2 EU/dL (Up TO 0.2)
--- NOTE | 2021-11-06 17:39 | ED.GENADUL_ITS ---
Discharge Plan Disposition Patient Disposition: HOME Condition: Stable Discharge Details Clinical Impression: Back pain, Pyelonephritis Primary Care Provider: Audra Stafford V ED Provider: Cha Denis Home Meds and New Rx's Prescriptions: New lidocaine [Lidoderm] 5 % adhesive patch,medicated 1 patch topical DAILY Qty: 15 0RF Rx Instructions: leave on most painful area for up to 12 hrs ciprofloxacin HCl 500 mg tablet 500 mg PO BID Qty: 12 0RF Continued acetaminophen [Tylenol Extra Strength] 500 mg tablet 1,000 mg PO Q6H PRN0RF albuterol sulfate 90 mcg/actuation HFA aerosol inhaler 2 puff INHALATION PRN PRN0RF Label Comments: USE 1 TO 2 PUFFS EVERY 4 -6 HOURS NEEDED FOR FOR SHORTNESS OF BREATH, WHEEZING AND COUGH omega-3 fatty acids Capsule 1 cap PO DAILY 0RF Discharge Instructions Instructions: Ciprofloxacin (By mouth), Kidney Infection (ED), Back Pain (ED) Additional Instructions: Take 600mg by mouth every 6 hours as needed for pain. Please take acetaminophen (tylenol) - 650mg every 6 hours by mouth as needed for pain. Use lidoderm patch 12 hours on, 12 hours off Please contact your primary care physician to arrange follow-up. Return to the ER immediately for any worsening or new concerning symptoms. Referrals: Audra Stafford MD [Primary Care Provider] - Medical Decision Making pt has positional back pain with initial urinalysis nitrite neg micro is contaminated specimen, so will obtain repeat micro repeat microanalysis is negative for UTI and with pt's symptoms predominantly in lower back, will hold on treating for UTI pt does report recent treatment for yeast infection denies any current dysuria dc'd with medications for musculoskeletal back pain in stable condition with stable vitals HPI General Mode of arrival: ambulatory . Date/Time Provider Initiated Documentation: 11/06/21 16:59 . Limitations to Documentation: no limitations . Information obtained by: patient . HPI Narrative: This 41-year-old female with history of cardiovascular epithelial neoplasm post hysterectomy presents with report of back pain for the past 3 days. Patient states the back pain was exacerbated by lifting her grandson today. She denies any fever or chills. She has dysuria mild dysuria. She denies any nausea or vomiting. Denies prior history of ureterolithiasis. Denies any recent actually transmitted disease. Hysterectomy was performed approximately a year ago. Related Data Home Medications Medication Instructions Recorded Confirmed acetaminophen 500 mg tablet 1,000 mg PO Q6H PRN tab 09/13/19 11/06/21 (Tylenol Extra Strength) albuterol sulfate 90 mcg/actuation 2 puff INHALATION PRN PRN 11/06/21 11/06/21 aerosol inhaler ciprofloxacin HCl 500 mg tablet 500 mg PO BID #12 tab 11/06/21 lidocaine 5 % topical patch 1 patch TOPICAL DAILY #15 ea 11/06/21 (Lidoderm) omega-3 fatty acids 1 cap PO DAILY 11/06/21 11/06/21 Previous Rx's Medication Instructions Recorded ciprofloxacin HCl 500 mg tablet 500 mg PO BID #12 tab 11/06/21 lidocaine 5 % topical patch 1 patch TOPICAL DAILY #15 ea 11/06/21 (Lidoderm) Allergies Allergy/AdvReac Type Severity Reaction Status Date / Time No Known Allergies Allergy Verified 11/06/21 17:15 General Stated Complaint: Urinary MARIELY: 3 PFSH All Active Problems (Updated 11/06/21 @ 20:44 by Lee Tejeda MD) Back pain (Acute) Pyelonephritis (Acute) 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 To treat abnormal uterine bleeding and associated anemia. Moderate dysplasia of cervix (ERIC II) (Acute 04/27/16) Low grade squamous intraepithelial lesion (LGSIL) on cervical Pap smear (Acute 04/08/16) Cervical high risk HPV (human papillomavirus) test positive (Acute 04/08/16) Abnormal uterine bleeding (Acute) Uterine fibroid complicating care, baby not yet delivered (Acute) IUD strings lost (Acute) Blood loss anemia (Acute) Fibroid, uterine (Acute) Anemia (Chronic) Dysfunctional uterine bleeding (Chronic 11/02/17) Medical History (Updated 11/06/21 @ 20:44 by Lee Tejeda MD) Hx of gastroesophageal reflux (GERD) Per pt. Surgical History (Updated 09/19/19 @ 21:32 by Jessica Garcia MD) S/P appendectomy S/P tubal ligation Social History Smoking/Tobacco Use Status: Never Smoking risk assessment performed?: Yes Alcohol Intake: current Alcohol Intake frequency: holidays/special occasions only Drug use: Never Substance use type: does not use Do you feel safe at home: Yes Do you feel safe in your relationship?: Yes Female Reproductive History Menstrual control method: progestin IUCD and permanent sterilization History History 8 Para 5 Hx # Term Pregnancies Multiple births Hx # Pregnancies Ectopic pregnancies AB induced Hx Number of Living Children AB spontaneous Course Vital Signs Vital signs: Vital Signs Temperature 36.3 C L 11/06/21 17:06 Pulse 96 H 11/06/21 17:06 Respiratory Rate 16 11/06/21 17:06 Blood Pressure 124/82 11/06/21 17:06 Pulse Oximetry 99 11/06/21 17:06 Temperature 36.3 C L 11/06/21 17:06 Temperature Source Skin 11/06/21 17:06 Pulse 96 H 11/06/21 17:06 Respiratory Rate 16 11/06/21 17:06 Respiratory Effort 11/06/21 17:19 Blood Pressure 124/82 11/06/21 17:06 Blood Pressure Position Sitting 11/06/21 17:06 Pulse Oximetry 99 11/06/21 17:06 Oxygen Delivery Method Room Air 11/06/21 17:06 Oxygen Flow Rate 0 11/06/21 17:06 Pain Level 8 11/06/21 17:21 Comment 11/06/21 17:06
[2021-11-06 17:46] LABS: Bacteria Many HPF (Negative); C & S Indicated? No/Sq. Contamination; Crystals Negative HPF (Negative); Epithelial Cells Many HPF (Negative); Mucus Negative (Negative); Other Cells Few Spermatozoa (Negative)
[2021-11-06] MEDS: Phenazopyridine 200 MG TAB PO (18:14)
[2021-11-06] MEDS: Ketorolac 15 MG/ML VIAL IM (18:15)
[2021-11-06 18:48] LABS: Epithelial Cells Few HPF (Negative)
[2021-11-06 18:49] LABS: Crystals Negative HPF (Negative); Mucus Trace (Negative)
[2021-11-06 19:27] VITALS: BP 115/72; PULSE 74; RESP 16; O2SAT 97
[2021-11-06] MEDS: Cyclobenzaprine 10 MG TAB, 3 TABS/BTL PO (19:27)
[2021-11-06 20:09] LABS: Bacteria Many HPF (Negative); RBC Negative HPF (0-2)
[2021-11-06 20:10] LABS: C & S Indicated? Yes
--- NOTE | 2021-11-06 20:35 | ED.FU.B_ITS ---
Follow Up Plan: Corrected urinalysis report was provided by medical laboratory technical officer and concerning for WBC 10-20, bacteria many, few epithelial cells. Culture is being sent. Patient has been discharged. I spoke with treating provider DARVIN Denis and discussed corrected lab report. She recommends treating for pyelonephritis. I called the patient and discussed results with her and recommended treatment. I advised that she return the emergency department tonight for initial antibiotic as pharmacies are closed. She will return as recommended. Plan to start ciprofloxacin 500 mg twice daily x7 days. Initial dose will be provided and will provide prescription to continue tomorrow. I recommended to patient that she follow-up with her primary care physician on Tuesday.
[2021-11-06] MEDS: Ciprofloxacin 500 MG TAB PO ×2 (21:01)
== END 2021-11-06 19:41 | disposition home or self-care (01) ==
PROVIDERS: Physician Assistant; Emergency Provider Physician Assistant; PCP Family Medicine
DX: N10 Acute pyelonephritis (principal); M54.9 Dorsalgia, unspecified; B96.20 Unspecified Escherichia coli [E. coli] as the cause of diseases classified elsewhere; Z16.11 Resistance to penicillins; Z16.29 Resistance to other single specified antibiotic
CPT/HCPCS: 87077; 96372; 99284; 81003; 81015; 87086; 87186; 99281; J1885

== ENCOUNTER 2021-11-18 10:12 | Emergency (ER) | payer MEDICAID, SELFPAY ==
[2021-11-18 10:20] VITALS: BP 120/85; PULSE 90; RESP 16; TEMP 37; O2SAT 98
[2021-11-18 10:51] LABS: Bilirubin Negative (Negative); Blood Negative (Negative); Clarity Clear (Clear); Glucose Negative (Negative); Ketones Negative (Negative); Leukocyte Esterase Negative (Negative); Nitrite Negative (Negative); Urobilinogen 0.2 EU/dL (Up TO 0.2)
--- NOTE | 2021-11-18 11:03 | DI.CT_ITS ---
Exam(s) CT ABDOMEN PELVIS WO/W EXAM: CT ABDOMEN PELVIS WO/W TECHNIQUE: Imaging Protocol: Axial computed tomography images with coronal and sagittal reformatted images were created and reviewed CONTRAST MATERIAL: Intravenous: Omnipaque 350 Contrast volume:100 ml Contrast route:IV - Oral: no COMPARISON: No exams were available for comparison FINDINGS: ABDOMEN: Lung Bases: Normal where visualized. Liver: Normal density. No measurable mass. Gallbladder and biliary tract: No radiodense calculus or dilation. Pancreas: Normal density, no abnormal calcifications or inflammatory process. Spleen: Normal. Kidneys: Normal size, contour and axis. No radiodense stones or obstructive uropathy. No masses seen. Symmetric nephrograms and pyelograms. No perinephric collection or evidence of pyelonephritis. Adrenal glands: No masses seen. Lymph nodes: Within normal limits. Abdominal Aorta: Abdominal portion non-dilated. PELVIS: Bladder: Symmetric distention, no gross wall thickening. No calcification or mass. Bowel: No obstruction or bowel wall thickening. Peritoneal cavity: No ascites, collection or mesenteric inflammatory response. Bones: Within normal limits. No destructive lesions. Mild degenerative disc changes at L5-S1. Reproductive organs: Status post hysterectomy. No evidence of a pelvic mass. Ovaries unremarkable. IMPRESSION: Status post hysterectomy. No acute abnormality. Results of this exam have been verbally communicated with the emergency department provider. RADIATION DOSE DELIVERED: 2,780.83mGy.cm Total DLP DATA REPOSITORY: All CT scans at this facility are submitted to the National Radiology Data Registry (NRDR) Dose Index Registry (DIR) with the [employer] (ACR). RADIATION OPTIMIZATION: All CT scans at this facility use at least one of these dose optimization te chniques: automated exposure control; mA and/or kV adjustment per patient size (includes targeted exa ms where dose is matched to clinical indication); or iterative reconstruction.
--- NOTE | 2021-11-18 11:09 | ED.GENADUL_ITS ---
Discharge Plan Disposition Patient Disposition: HOME Condition: Stable Discharge Details Clinical Impression: Back pain Primary Care Provider: Audra Stafford V ED Provider: Erum Tejeda Home Meds and New Rx's Prescriptions: New prednisone 20 mg tablet 40 mg PO ONCE Qty: 8 0RF Rx Instructions: please begin taking 11/19/21 Continued acetaminophen [Tylenol Extra Strength] 500 mg tablet 1,000 mg PO Q6H PRN0RF albuterol sulfate 90 mcg/actuation HFA aerosol inhaler 2 puff INHALATION PRN PRN0RF Label Comments: USE 1 TO 2 PUFFS EVERY 4 -6 HOURS NEEDED FOR FOR SHORTNESS OF BREATH, WHEEZING AND COUGH omega-3 fatty acids Capsule 1 cap PO DAILY 0RF lidocaine [Lidoderm] 5 % adhesive patch,medicated 1 patch topical DAILY Qty: 15 0RF Rx Instructions: leave on most painful area for up to 12 hrs Discontinued ciprofloxacin HCl 500 mg tablet 500 mg PO BID Qty: 12 0RF Discharge Instructions Instructions: Back Pain (ED) Additional Instructions: Please return immediately to the emergency department if you develop any new or worsening symptoms, if your condition does not improve as expected, or if you become otherwise concerned. It is extremely important that you call soon as possible to make an appointment to be seen in follow-up for this visit by your primary care doctor. 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 Per patient and record review, patient was seen here 11/06/2021 for right lower back pain, dysuria. Patient reports that she has had a total of 3 weeks of mild dysuria, and presented to emergency department on 11/06/2021 when she had sudden onset right lower back pain after picking up her child. She was diagnosed with UTI in the ED, treated with Cipro (cultures grew greater than 100,000 colonies of E. coli, sensitive to Cipro). Patient reports that she took full 7 day course of antibiotic and had resolution of right lower back pain, burning with urination did not resolve and has continued. Patient reports that after several days on 11/16 right lower back pain returned, same location/quality/severity as that which led her to present on 11/06/2021. Patient reports that back pain is worse with moving/walking. She denies any other pain, fevers, shortness of breath, cough, vomiting, diarrhea, constipation, urinary frequency, numbness including to saddle region, weakness. Pt states that she has never had similar back pain in the past. She states that was told her uterine cancer could metastasize, and is concerned for cancerous etiology of pain. On exam Pt is well and non-toxic appearing. No abdominal, CVA, or thoracic/lumbar TTP. No neuro deficit. Concern for likely MSK pain vs kidney stone vs less likely neoplastic etiology of pain vs other. Exam/hx at this time not c/w sepsis, acute aortic pathology, appendicitis or other acute emergent intra-abdominal process. Plan for IV placement, CT renal, screening labs. I discussed Pt presentation any my concern for possible neoplastic process with Dr. Otero of radiology, who requested CT abd/pel w and w/o. CT negative. UA negative. Labs reviewed and non-diagnostic. Suspect lumbar strain. Plan for prednisone. Pt states that she has flexeril and lidoderm patches prescribed but which she has not used. Will give rx prednisone, counciled Pt on safe flexeril use and lidoderm patch use. I had a discussion with Patient regarding return to emergency department precautions, home care, and importance of outpatient follow-up. Pt verbalizes understanding of the plan and is amenable. Patient discharged to home with clear plan for outpatient follow-up. All questions were answered. Disposition decision was made weighing the risks and benefits of hospitalization versus outpatient treatment, the risk for further decompensation, and the patient's wishes. Medical Records Medical records reviewed: Yes I reviewed the patient's medical records. Imaging Data Radiologic Study: Attestation: I personally reviewed and interpreted this imaging study as follows: Radiologist's impression: EXAM:? CT ABDOMEN ? PELVIS WO/W TECHNIQUE:? Imaging Protocol: Axial computed tomography images with coronal and sagittal reformatted images were created and reviewed CONTRAST MATERIAL:? Intravenous: Omnipaque 350 Contrast volume:100 ml Contrast route:IV - Oral:? no COMPARISON:? No exams were available for comparison FINDINGS: ABDOMEN: Lung Bases: Normal where visualized. Liver: Normal density. No measurable mass. Gallbladder and biliary tract: No radiodense calculus or dilation. Pancreas: Normal density, no abnormal calcifications or inflammatory process. Spleen: Normal. Kidneys: Normal size, contour and axis. No radiodense stones or obstructive uropathy. No masses seen. Symmetric nephrograms and pyelograms.? No perinephric collection or evidence of pyelonephritis. Adrenal glands: No masses seen. Lymph nodes: Within normal limits. Abdominal Aorta: Abdominal portion non-dilated. PELVIS:? Bladder: Symmetric distention, no gross wall thickening. ? No calcification or mass. Bowel: No obstruction or bowel wall thickening. Peritoneal cavity: No ascites, collection or mesenteric inflammatory response. Bones: Within normal limits. No destructive lesions.? Mild degenerative disc changes at L5-S1. Reproductive organs: Status post hysterectomy.? No evidence of a pelvic mass.? Ovaries unremarkable.? IMPRESSION: Status post hysterectomy.? No acute abnormality. Results of this exam have been verbally communicated with the emergency department provider. Lab Data Lab results reviewed: Yes I reviewed the patient's lab results. Labs: Laboratory Tests Range/Units 11/18/21 11/18/21 11/18/21 10:16 11:17 11:17 WBC (4.4-10.8) 10^3/uL 7.18 RBC (3.93-5.22) 10^6/uL 4.86 Hgb (11.2-15.7) g/dL 13.6 Hct (36.0-46.0) % 41.2 MCV (80-95) fL 84.8 MCH (27.0-33.0) pg 28.0 MCHC (32.0-36.0) % 33.0 RDW (11.7-14.6) % 13.9 Plt Count (130-400) 10^3/uL MPV (8.0-11.0) fL Immature Gran % 0.3 Neutrophils % 72.9 Lymphocytes % 21.2 Monocytes % 4.6 Eosinophils % 0.6 Basophils % 0.4 Nucleated RBC % % 0 Absolute Neutrophils (1.2-6.7) 10^3/uL 5.24 Absolute Lymphocytes (1.2-3.4) 10^3/uL 1.52 Absolute Monocytes (0.1-0.8) 10^3/uL 0.33 Absolute Eosinophils (0.0-0.7) 10^3/uL 0.04 Absolute Basophils (0.0-0.2) 10^3/uL 0.03 Sodium (136-145) mmol/L 137 Potassium (3.5-5.1) mmol/L 3.7 Chloride (98-107) mmol/L 103 Carbon Dioxide (21.0-32.0) mmol/L 25.8 Anion Gap (3-11) mmol/L 8.2 BUN (7-18) mg/dL 11 Creatinine (0.55-1.02) mg/dL 0.7 Estimated GFR/1.73 m2 (mL/min/1.73m2) >= 60.00 Glucose (74-106) mg/dL 94 Calcium (8.5-10.1) mg/dL 8.8 Total Bilirubin (0.2-1.0) mg/dL 0.4 AST (15-37) U/L 10 L ALT (14-59) U/L 32 Alkaline Phosphatase (46-116) U/L 63 Total Protein (6.4-8.2) g/dL 7.5 Albumin (3.4-5.0) g/dL 3.7 Urine Color (Yellow) Yellow Urine Clarity (Clear) Clear Urine pH (5-8) 6.0 Ur Specific Matthews (1.005-1.025) 1.010 Urine Protein (Negative) mg/dL Negative Urine Ketones (Negative) mg/dL Negative Urine Blood (Negative) Negative Urine Nitrite (Negative) Negative Urine Bilirubin (Negative) Negative Urine Urobilinogen (Up TO 0.2) EU/dL 0.2 Ur Leukocyte Esterase (Negative) Negative Urine Glucose (Negative) mg/dL Negative HPI General Date/Time Provider Initiated Documentation: 11/18/21 10:31 . Limitations to Documentation: no limitations . Information obtained by: patient, RN notes reviewed and old records reviewed . 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 Per patient and record review, patient was seen here 11/06/2021 for right lower back pain, dysuria. Patient reports that she has had a total of 3 weeks of mild dysuria, and presented to emergency department on 11/06/2021 when she had sudden onset right lower back pain after picking up her child. She was diagnosed with UTI in the ED, treated with Cipro (cultures grew greater than 100,000 colonies of E. coli, sensitive to Cipro). Patient reports that she took full 7 day course of antibiotic and had resolution of right lower back pain, burning with urination did not resolve and has continued. Patient reports that after several days on 11/16 right lower back pain returned, same location/quality/severity as that which led her to present on 11/06/2021. Patient reports that back pain is worse with moving/walking. She denies any other pain, fevers, shortness of breath, cough, vomiting, diarrhea, constipation, urinary frequency, numbness including to saddle region, weakness. Pt states that she has never had similar back pain in the past. She states that was told her uterine cancer could metastasize, and is concerned for cancerous etiology of pain. Related Data Home Medications Medication Instructions Recorded Confirmed acetaminophen 500 mg tablet 1,000 mg PO Q6H PRN tab 09/13/19 11/06/21 (Tylenol Extra Strength) albuterol sulfate 90 mcg/actuation 2 puff INHALATION PRN PRN 11/06/21 11/06/21 aerosol inhaler lidocaine 5 % topical patch 1 patch TOPICAL DAILY #15 ea 11/06/21 (Lidoderm) omega-3 fatty acids 1 cap PO DAILY 11/06/21 11/06/21 prednisone 20 mg tablet 40 mg PO ONCE #8 tab 11/18/21 Previous Rx's Medication Instructions Recorded lidocaine 5 % topical patch 1 patch TOPICAL DAILY #15 ea 11/06/21 (Lidoderm) prednisone 20 mg tablet 40 mg PO ONCE #8 tab 11/18/21 Allergies Allergy/AdvReac Type Severity Reaction Status Date / Time No Known Allergies Allergy Verified 11/06/21 17:15 General Stated Complaint: FlankPain MARIELY: 3 Review of Systems Narrative: Constitutional: denies fevers Eyes: denies eye pain ENT: denies ear pain, dental pain, sore throat Cardiovascular: denies chest pain, edema Respiratory: denies SOB, cough GI: denies abdominal pain, vomiting, diarrhea, constipation, bowel changes : denies flank pain, incontinence/urinary hesitancy, frequency, reports mild dysuria MSK: denies neck pain, arthralgias, myalgias, reports back pain Skin: denies rash Neuro: denies headaches, numbness, weakness PFSH All Active Problems (Updated 11/18/21 @ 12:49 by Erum Tejeda MD) Back pain (Acute) Pyelonephritis (Acute) Back pain (Acute) 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 To treat abnormal uterine bleeding and associated anemia. Moderate dysplasia of cervix (ERIC II) (Acute 04/27/16) Low grade squamous intraepithelial lesion (LGSIL) on cervical Pap smear (Acute 04/08/16) Cervical high risk HPV (human papillomavirus) test positive (Acute 04/08/16) Abnormal uterine bleeding (Acute) Uterine fibroid complicating care, baby not yet delivered (Acute) IUD strings lost (Acute) Blood loss anemia (Acute) Fibroid, uterine (Acute) Anemia (Chronic) Dysfunctional uterine bleeding (Chronic 11/02/17) Medical History (Updated 11/18/21 @ 12:49 by Erum Tejeda MD) Hx of gastroesophageal reflux (GERD) Per pt. Surgical History (Updated 09/19/19 @ 21:32 by Jessica Garcia MD) S/P appendectomy S/P tubal ligation Social History Smoking/Tobacco Use Status: Never Smoking risk assessment performed?: Yes Alcohol Intake: current Alcohol Intake frequency: holidays/special occasions only Drug use: Never Substance use type: does not use Do you feel safe at home: Yes Do you feel safe in your relationship?: Yes Female Reproductive History Menstrual control method: progestin IUCD and permanent sterilization History History 8 Para 5 Hx # Term Pregnancies Multiple births Hx # Pregnancies Ectopic pregnancies AB induced Hx Number of Living Children AB spontaneous Exam Narrative Exam Narrative: Constitutional: well and [id number], pleasant, conversing normally HENT: head atraumatic/normocephalic/normal inspection, mucous membranes moist Eyes: conjunctiva normal, sclera normal, pupils 3mm b/l Neck: no stridor, normal ROM, trachea midline Resp: normal work of breathing, speaking in full sentences Cardio: normal rate, normal rhythm GI: abdomen soft, non-tender, non-distended, no CVA TTP Back: normal inspection, no rash, no thoracic or lumbar spinal or paraspinal TTP Skin: warm, dry, normal color, no rash Neuro: alert, not altered, motor 5/5 b/l LEs, sensation intact b/l b/l lower ext including saddle region, normal tone Ext: no edema, no posterior calf TTP, DP pulses intact and symmetric Psych: normal mood, normal affect, normal behavior Course Vital Signs Vital signs: Vital Signs Temperature 37 C 11/18/21 10:20 Pulse 90 11/18/21 10:20 Respiratory Rate 16 11/18/21 10:20 Blood Pressure 120/85 11/18/21 10:20 Pulse Oximetry 98 11/18/21 10:20 Temperature 37 C 11/18/21 10:20 Pulse 90 11/18/21 10:20 Respiratory Rate 16 11/18/21 10:20 Respiratory Effort 11/18/21 10:26 Blood Pressure 120/85 11/18/21 10:20 Pulse Oximetry 98 11/18/21 10:20 Pain Level 9 11/18/21 10:26 Comment 11/18/21 10:20 Lab/Test Results Lab/Test Results: Laboratory Tests Range/Units 11/18/21 10:16 Urine Color (Yellow) Yellow Urine Clarity (Clear) Clear Urine pH (5-8) 6.0 Ur Specific Matthews (1.005-1.025) 1.010 Urine Protein (Negative) mg/dL Negative Urine Ketones (Negative) mg/dL Negative Urine Blood (Negative) Negative Urine Nitrite (Negative) Negative Urine Bilirubin (Negative) Negative Urine Urobilinogen (Up TO 0.2) EU/dL 0.2 Ur Leukocyte Esterase (Negative) Negative Urine Glucose (Negative) mg/dL Negative
[2021-11-18] MEDS: Normal Saline 1,000 ML 1000 ML IV (11:18)
[2021-11-18 11:38] LABS: Abs Immature Grans 0.02 10^3/uL (0.0-0.06); Absolute Basophil Count 0.03 10^3/uL (0.0-0.2); Absolute Eosinophil Count 0.04 10^3/uL (0.0-0.7); Absolute Lymphocyte Count 1.52 10^3/uL (1.2-3.4); Absolute Monocyte Count 0.33 10^3/uL (0.1-0.8); Absolute Neutrophil Count 5.24 10^3/uL (1.2-6.7); Basophils % 0.4; Eosinophils % 0.6; HCT 41.2 % (36.0-46.0); HGB 13.6 g/dL (11.2-15.7); Immature Grans % 0.3; Lymphocytes % 21.2; MCV 84.8 fL (80-95); Monocytes % 4.6; Neutrophils % 72.9; Nucleated RBC 0 %; RBC 4.86 10^6/uL (3.93-5.22); RDW 13.9 % (11.7-14.6); RDW-SD 42.8 fL; WBC 7.18 10^3/uL (4.4-10.8)
[2021-11-18 11:53] LABS: ALT 32 U/L (14-59); AST 10 U/L (15-37); Albumin 3.7 g/dL (3.4-5.0); Alkaline Phosphatase 63 U/L (46-116); Anion Gap 8.2 mmol/L (3-11); BUN 11 mg/dL (7-18); Bilirubin, Total 0.4 mg/dL (0.2-1.0); CO2 25.8 mmol/L (21.0-32.0); CREATININE 0.7 mg/dL (0.55-1.02); Calcium 8.8 mg/dL (8.5-10.1); Chloride 103 mmol/L (98-107); Glucose 94 mg/dL (74-106); Potassium 3.7 mmol/L (3.5-5.1); Sodium 137 mmol/L (136-145); Total Protein 7.5 g/dL (6.4-8.2)
[2021-11-18] MEDS: Omnipaque 350 MG/ML 100 ML BTL IJ (12:29)
[2021-11-18 12:30] VITALS: BP 109/69; PULSE 82; RESP 16; O2SAT 99
[2021-11-18] MEDS: predniSONE 20 MG TAB 40 MG PO (12:58)
== END 2021-11-18 13:05 | disposition home or self-care (01) ==
PROVIDERS: Emergency Provider Student in an Organized Health Care Education/Training Program; PCP Family Medicine
DX: M54.50 Low back pain, unspecified (principal); R30.9 Painful micturition, unspecified
CPT/HCPCS: 36415; 80053; 96360; 96361; 99285; 74178; 81003; 85025; 99283; J3490; J7512

== ENCOUNTER 2022-09-09 17:49 | Emergency (ER) | payer MEDICAID, SELFPAY ==
--- NOTE | 2022-09-09 17:45 | DI.RAD_ITS ---
Exam(s) XR KNEE LT 3V AP,LAT,ERIKA EXAM: XR KNEE LT 3V AP,LAT,ERIKA CLINICAL HISTORY: Fall 2 days ago. TECHNIQUE: 2D digital imaging was performed. COMPARISON: No exams were available for comparison FINDINGS: 3 views No evidence of acute fracture or prominent joint effusion. No obvious degenerative changes. No osseous lesions. IMPRESSION: No significant osseous findings. DATA REPOSITORY: RADIATION DOSE DELIVERED:
[2022-09-09 17:52] VITALS: BP 119/86; PULSE 86; RESP 18; TEMP 36.9; O2SAT 100
--- NOTE | 2022-09-09 18:14 | ED.GENADUL_ITS ---
Discharge Plan Disposition Patient Disposition: Home Condition: Stable Discharge Details Clinical Impression: Sprain of left knee Primary Care Provider: Audra Stafford V ED Provider: Yvette Muse Home Meds and New Rx's Prescriptions: No Action acetaminophen [Tylenol Extra Strength] 500 mg tablet 1,000 mg PO Q6H PRN ibuprofen 200 mg Tablet 400 mg PO Q6H PRN Discharge Instructions Instructions: Knee Sprain (ED) Additional Instructions: No evidence of fracture or broken bones on the x-ray today. Wear the hinged knee brace as directed for comfort. Rest, ice, compression, elevation. Please take Tylenol or Ibuprofen with food every 4-6 hours as needed for pain and swelling. Follow up with primary care provider in 3-5 days. Return to ED sooner if any worsening or concerns. Increase oral fluids. Continued pain after couple weeks of the RICE procedures mentioned above you may follow-up with orthopedics if needed for further evaluation. Stand Alone Forms: Work Release Referrals: Daniel Razo MD [ [facility] STAFF PHYSICIAN] - Return if symptoms worsen Medical Decision Making 42-year-old female presents with left medial knee pain after a twisting type injury on the ice 2 days ago and falling. She reports that her leg went behind her and she heard a crunch. She has been ambulatory without difficulty since the injury. No other complaints. She has been taking Tylenol ibuprofen and ice at home. She does have a history of a surgery due to a femur fracture at age 8 on that same leg. She has had pins placed in the past. X-ray ordered see result below is within normal limits. We will give a hinged knee brace. Instructed on RICE procedures and follow-up care if needed. This text was generated using [employer] system, please disregard any oddities of phrase or misspellings. Imaging Data Radiologic Study: Imaging: X-Ray Radiologist's impression: TECHNIQUE: Imaging protocol: Radiologic exam of the Left knee. Views: 3 views. COMPARISON: No relevant prior studies available. FINDINGS: Bones/joints: No fracture or other osseous abnormality. Joint spaces are well preserved. No significant effusion. No varus or valgus angulation. Soft tissues: Normal. IMPRESSION: Normal knee. Thank you for allowing us to participate in the care of your patient. Dictated and Authenticated by: Rodriguez Smith MD [facility] General Mode of arrival: ambulatory . Date/Time Provider Initiated Documentation: 09/09/22 17:59 . Limitations to Documentation: no limitations . Information obtained by: patient, RN notes reviewed and old records reviewed . HPI Narrative: 42-year-old female presents with left medial knee pain after a twisting type injury on the ice 2 days ago and falling. She reports that her leg went behind her and she heard a crunch. She has been ambulatory without difficulty since the injury. No other complaints. She has been taking Tylenol ibuprofen and ice at home. She does have a history of a surgery due to a femur fracture at age 8 on that same leg. She has had pins placed in the past. Past medical history includes anemia, appendectomy, tubal ligation. Related Data Home Medications Medication Instructions Recorded Confirmed acetaminophen 500 mg tablet 1,000 mg PO Q6H PRN 09/13/19 09/09/22 (Tylenol Extra Strength) ibuprofen 200 mg tablet 400 mg PO Q6H PRN 09/09/22 09/09/22 Allergies Allergy/AdvReac Type Severity Reaction Status Date / Time No Known Allergies Allergy Verified 09/09/22 17:56 General Stated Complaint: Orthopedic MARIELY: 4 Review of Systems Musculoskeletal Musculoskeletal: Reports as per HPI, Denies deformity, Reports arthralgias and Reports joint swelling PFSH All Active Problems (Updated 09/09/22 @ 19:27 by Yvette Muse NP) Sprain of left knee (Acute) 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 To treat abnormal uterine bleeding and associated anemia. Moderate dysplasia of cervix (ERIC II) (Acute 04/27/16) Low grade squamous intraepithelial lesion (LGSIL) on cervical Pap smear (Acute 04/08/16) Cervical high risk HPV (human papillomavirus) test positive (Acute 04/08/16) Abnormal uterine bleeding (Acute) Uterine fibroid complicating care, baby not yet delivered (Acute) IUD strings lost (Acute) Blood loss anemia (Acute) Fibroid, uterine (Acute) Anemia (Chronic) Dysfunctional uterine bleeding (Chronic 11/02/17) Medical History Hx of gastroesophageal reflux (GERD) Per pt. Surgical History S/P appendectomy S/P tubal ligation Social History Smoking/Tobacco Use Status: Never Smoking risk assessment performed?: Yes Alcohol Intake: current Alcohol Intake frequency: holidays/special occasions only Drug use: Never Substance use type: does not use Do you feel safe at home: Yes Do you feel safe in your relationship?: Yes Female Reproductive History Menstrual control method: progestin IUCD and permanent sterilization History History 8 Para 5 Hx # Term Pregnancies Multiple births Hx # Pregnancies Ectopic pregnancies AB induced Hx Number of Living Children AB spontaneous Exam Const General: cooperative, healthy appearing and comfortable Nutritional Appearance: average body habitus Orientation: alert, awake and oriented x3 Extrem Left lower extremity: normal capillary refill and knee Details: tenderness Location: of the medial joint line; no abrasions and no lacerations Course Vital Signs Vital signs: Vital Signs Temperature 36.9 C 09/09/22 17:52 Pulse 86 09/09/22 17:52 Respiratory Rate 18 09/09/22 17:52 Blood Pressure 119/86 09/09/22 17:52 Pulse Oximetry 100 09/09/22 17:52 Temperature 36.9 C 09/09/22 17:52 Temperature Source Tympanic 09/09/22 17:52 Pulse 86 09/09/22 17:52 Respiratory Rate 18 09/09/22 17:52 Respiratory Effort Non-Labored 09/09/22 17:55 Blood Pressure 119/86 09/09/22 17:52 Blood Pressure Position Sitting 09/09/22 17:52 Pulse Oximetry 100 09/09/22 17:52 Oxygen Delivery Method Room Air 09/09/22 17:52 Oxygen Flow Rate 0 09/09/22 17:52 Pain Level 5 09/09/22 17:52
--- NOTE | 2022-09-09 19:01 | DI.VRAD_ITS ---
PROCEDURE INFORMATION: Exam: XR Left Knee Exam date and time: 09/09/2022 6:36 PM Age: 42 years old Clinical indication: Injury or trauma; Fall; Sprain or strain; Patella or knee; Left TECHNIQUE: Imaging protocol: Radiologic exam of the Left knee. Views: 3 views. COMPARISON: No relevant prior studies available. FINDINGS: Bones/joints: No fracture or other osseous abnormality. Joint spaces are well preserved. No significant effusion. No varus or valgus angulation. Soft tissues: Normal. IMPRESSION: Normal knee. Dictated and Authenticated by: Rodriguez Smith MD. Ordering:TINO Crawford MD
--- NOTE | 2022-09-14 18:28 | NUR.NOTE ---
Nursing Note: Patient called stating that her workplace would not accept the work note that was written for her. It needs to be more specific as to sitting, standing, etc. and the time lapse of these I consulted with Kyle BOSTON and Estrellita Neal RN and told the patient that she can call her PCP to see if they would write her another work note; she can return to the ED for evaluation for a more specific work note due to the provider who saw her would not be in for a few days. They also stated to tell her that we don't usually do work notes so specific. She stated she was going to try and go to Urgent Care for the work note.
== END 2022-09-09 19:47 | disposition home or self-care (01) ==
PROVIDERS: Emergency Provider Registered Nurse Emergency; PCP Family Medicine
DX: S83.8X2A Sprain of other specified parts of left knee, initial encounter (principal); X50.1XXA Overexertion from prolonged static or awkward postures, initial encounter
CPT/HCPCS: 29505; 73562; 99283